=== PATIENT | male | born 1990 | race Hispanic/Latino ===

== ENCOUNTER 2017-05-23 15:31 | Emergency (ER) | payer SELFPAY ==
--- NOTE | 2017-05-23 18:12 | RAD ---
CHEST TWO VIEWS: History: Dyspnea. Comparison: None. FINDINGS: Normal cardiac silhouette. The pulmonary vessels and hilum are normal. Costophrenic angles are clear . No masses or consolidation. Nonspecific left apical pleural thickening. No pneumothorax or osseous abnormality. IMPRESSION: Nonspecific left apical pleural thickening. Non emergent chest CT can be performed. POS: [facility]
== END 2017-05-23 18:52 | disposition home or self-care (01) ==
LOC: ERS 15:31
DX: F41.9 Anxiety disorder, unspecified (principal)
CPT/HCPCS: 71020; 93005

== ENCOUNTER 2024-03-12 13:10 | Emergency (ER) | payer SELFPAY ==
[2024-03-12 14:34] LABS: #Basophils 0.04 10x3/uL (0.0-0.2); %Basophils 0.7 % (0.0-1.0); %Eosinophils 1.4 % (0.0-10.0); %Neutrophils 55.7 % (42.0-75.0); Hematocrit 42.1 % (42.0-52.0); Hemoglobin 14.4 g/dL (14.0-18.0); Mean Corpuscular HGB CONC 34.2 g/dL (32.0-36.0); Mean Corpuscular Hemoglobin 30.6 pg (27.0-31.0); Mean Corpuscular Volume 89.6 fL (78.0-98.0); Mean Platelet Volume 11.2 fL (7.4-10.4); Platelet Count 237 10x3/uL (130-400)
[2024-03-12 14:54] LABS: ALT (SGPT) 11 U/L (8-55); AST (SGOT) 19 U/L (5-34); Acetaminophen Less than 10 mcg/mL (10.0-30.0); Alcohol Less than 10.0 mg/dL (Less than 10); Alkaline Phosphatase 128 U/L (40-110); Anion Gap 11 mmol/L (10-20); BUN (Urea Nitrogen) 11 mg/dL (8.9-20.6); Bilirubin, Total 0.4 mg/dL (0.2-1.2); Calc. Creatinine Clearance 0 mL/min (70-130); Calcium 9.3 mg/dL (7.8-10.44); Carbon Dioxide 22 mmol/L (22-29); Chloride 108 mmol/L (98-107); Estimated GFR 118; Globulin 3.2 g/dL (2.4-3.5); Glucose 95 mg/dL (70-105); Magnesium 2.1 mg/dL (1.6-2.6); Potassium 3.5 mmol/L (3.5-5.1); Protein, Total 7.2 g/dL (6.0-8.3); Salicylate Less than 8.0 mg/dL (15.0-30.0); Sodium 137 mmol/L (136-145)
[2024-03-12] MEDS ORDERED: Haloperidol 1 MG TAB ONE (15:37)
== END 2024-03-12 17:45 | disposition home or self-care (01) ==
LOC: ERS 13:10
DX: R45.1 Restlessness and agitation (principal)
CPT/HCPCS: 36415; 80053; 80143; 80179; 80307; 83735; 85025; 99285